=== PATIENT | male | born 1950 | race Caucasian/White ===

== ENCOUNTER 2024-07-11 15:53 | Emergency (ER) | payer MEDICARE, OTHER, SELFPAY ==
[2024-07-11 16:01] VITALS: BP 177/112
[2024-07-11 16:02] VITALS: BP 177/112
[2024-07-11 16:02] LABS: Glucose - Point of Care 52 mg/dl (70-99)
[2024-07-11 16:20] VITALS: BP 166/69
[2024-07-11 16:23] LABS: % Immature Granulocytes 0.1 % (0-0.5); % Lymphocytes 26.8 % (20.5-51.1); % Monocytes 12.2 % (1.7-9.3); % Neutrophils 54.9 % (42.2-75.2); Absolute Basophils 0.1 10^3/uL (0-0.2); Absolute Eosinophils 0.4 10^3/uL (0-0.7); Absolute Monocytes 0.9 10^3/uL (0.1-0.6); Hematocrit 38.1 % (39.0-52.0); Hemoglobin 13.1 g/dL (13.0-18.0); Mean Corp Hgb Conc. 34.4 g/dL (33.0-37.0); Mean Corpuscular Hgb 30.1 pg (27.0-31.0); Mean Corpuscular Volume 87.6 fL (80.0-94.0); Mean Platelet Volume 10.5 fL (7.4-10.4); Nucleated Red Blood Cells % 0 % (-); Platelet Count 259 10^3/uL (130-400); Red Blood Cell Count 4.35 10^6/uL (4.70-6.10); White Blood Cell Count 7.3 10^3/uL (4.8-10.8)
[2024-07-11 16:32] LABS: ALT (SGPT) 32 U/L (0-50); AST (SGOT) 26 U/L (17-59); Albumin 4.3 g/dl (3.5-5.0); Alkaline Phosphatase 75 U/L (38-126); Blood Urea Nitrogen 27 mg/dl (9-20); Calcium 8.9 mg/dl (8.4-10.2); Carbon Dioxide 26 mmol/L (22-30); Chloride 103 mmol/L (98-107); Glucose 58 mg/dl (70-99); Potassium 3.8 mmol/L (3.5-5.1); Sodium 139 mmol/L (135-145); Total Bilirubin 0.6 mg/dl (0.2-1.3); Total Protein 6.9 g/dl (6.3-8.2); eGFR > 60.00
[2024-07-11 16:36] LABS: Glucose - Point of Care 87 mg/dl (70-99)
[2024-07-11 16:40] VITALS: BP 178/94
[2024-07-11 16:44] LABS: Troponin I < 0.012 ng/ml
[2024-07-11 17:00] VITALS: BP 146/100
[2024-07-11 17:20] VITALS: BP 171/93
--- NOTE | 2024-07-11 17:44 | ED.GENMED ---
History of Present Illness
General
Chief Complaint: Fainting Sensation
Source: patient
Exam Limitations: none
Time Seen by Provider: 07/11/24 17:00
History of Present Illness
History of Present Illness:
See MDM
Past History
Past History
ED Past Medical History: HTN, NIDDM and Hypothyroidism
ED Past Surgical History: Other (Thyroidectomy)
Social History
Tobacco: Non-smoker
Alcohol: None
Phy Exam
Physical Exam
Physical Exam:
See MDM
Course
Orders/Labs/Results
Orders:
Orders
07/11/24 15:57
Electrocardiogram (*1) Urgent
Reason for Study: Bradycardia / Tachycardia
EKG- Treatment ONCE
07/11/24 16:12
Complete Blood Count/With Diff Urgent
Comprehensive Metabolic Panel Urgent
Troponin I Urgent
Abnormal Lab Results
07/11/24 07/11/24
16:01 16:12
RBC 4.35 L 10^6/uL
(4.70-6.10)
Hct 38.1 L %
(39.0-52.0)
MPV 10.5 H fL
(7.4-10.4)
Absolute Monos (auto) 0.9 H 10^3/uL
(0.1-0.6)
Monocytes % 12.2 H %
(1.7-9.3)
BUN 27 H mg/dl
(9-20)
Glucose 58 L mg/dl
(70-99)
POC Glucose 52 L* mg/dl
(70-99)
07/11/24 16:12
07/11/24 16:12
Vital Signs
Initial and Last Documented VS:
Initial Vital Signs
Pulse Resp BP
86 18 177/112
07/11/24 16:01 07/11/24 16:01 07/11/24 16:01
Last Documented Vital Signs
Temp Pulse Resp BP Pulse Ox
97.4 F 80 19 171/93 93
07/11/24 16:02 07/11/24 17:20 07/11/24 17:20 07/11/24 17:20 07/11/24 17:20
MDM/Problems Addressed
Differential Diagnosis Includes:
HPI and MDM Narrative:
73-year-old male presenting for near syncopal event. Patient was food shopping and he felt lightheaded and dizzy and he was helped to the floor. On arrival, patient found to be hypoglycemic. Patient was given RCS and immediately all symptoms
resolved. He denies chest pain or shortness of breath. Patient had an episode several months back with a negative workup. He has since followed up with a photographer with an echo and stress test and carotid ultrasounds. Patient states all of
his workup was negative. He is on metformin and glimepiride. He does admit to a normal breakfast today.
EKG is nonischemic. Troponin negative. We discussed that his symptoms could be related to glimepiride. We discussed cessation of his glimepiride until calling his doctor tomorrow morning
Physical exam
General: Well appearing and non-toxic
HEENT: protecting airway
Neck: appears supple
CV: No evidence of cyanosis. Regular rate and rhythm
Resp: No accessory muscle use
Abd: Non-distended
Extremities: No deformities. No leg edema
Neuro: alert
Psych: Normal affect
Skin: Intact
Problems Addressed including Acute and Chronic Conditions affecting care:
1. Hypoglycemia
Acuity: acute
Prognosis: stable
Details: Likely in setting of sulfonylurea. Discussed cessation of his medication till speaking to his doctor. After food, blood sugar stable and all symptoms resolved
Differential Diagnosis (but not limited to): Near syncope, cardiac arrhythmia, hypoglycemia
Testing considered: Second troponin
Drug therapy (if applicable): OTC meds, please see d/c instruction regarding Rx drugs
Amount and/or Complexity of Data Reviewed
Clinical info obtained from: Patient
External data reviewed: N/A
Labs I independently reviewed (but not limited to): Hypoglycemia
Radiology: N/A
Pulse Ox: not hypoxic
EKG independently reviewed: Sinus rhythm, normal axis, no STEMI
[employer]: Sinus rhythm
Critical Care: N/A
Risk of Complication:
Social Determinants of health: Good social support
Discussed with other providers: N/A
Escalation of Care includes Admit/Obs: After being observed in the Emergency Department, pt stable for discharge.
Occasional wrong word or 'sound a like' substitutions may have occurred due to the inherent limitations of voice recognition software. Read the chart carefully and recognize, using context, where substitutions have occurred.
*Critical Care Note
Total Time (30-74mins, 75-104mins- exclusive of procedures): Not Applicable
ED Attending Note
-
Portions of this chart may have been created with voice recognition software.� Occasional wrong word or��sound alike� substitutions may have occurred due to the inherent limitations of voice recognition software.
Discharge Plan
Departure
Patient Disposition: Home (Routine Discharge)
Date of Disposition: 07/11/24
Time of Disposition: 17:53
Patient with high blood pressure during this ER visit?: Yes
Discharge Problem:
Hypoglycemia
Instructions: BLOOD PRESSURE
Activity Restrictions/Additional Instructions:
Please return for any worsening symptoms.
You may return at any time if you have further concerns.
Please follow up with your doctor at the first available appointment, preferably this week. Refrain from taking your glimepiride until speaking to your doctor. He may want to decrease it or discontinue it.
Thank you for choosing [facility].
Interventions
Interventions:
*Risk Screen - Suicide Last Done: 07/11/24 15:59
*General Assessment Last Done: 07/11/24 15:59
*Neglect/Abuse Screening Last Done: 07/11/24 15:59
*ED COVID-19 Vaccine History Last Done: 07/11/24 16:00
ED- Cardiac Assessment Last Done: 07/11/24 16:03
ED- Neurological Assessment Last Done: 07/11/24 16:03
Discharge Date and Time
Print Language: JAPANESE
[2024-07-11 18:21] LABS: Glucose - Point of Care 134 mg/dl (70-99)
== END 2024-07-11 18:43 | disposition home or self-care (01) ==
LOC: EMR 15:53
PROVIDERS: EMERGENCY PHYSICIAN Student in an Organized Health Care Education/Training Program; FAMILY PHYSICIAN Physical Therapist
DX: E11.649 Type 2 diabetes mellitus with hypoglycemia without coma (principal); R55 Syncope and collapse; I10 Essential (primary) hypertension; E03.9 Hypothyroidism, unspecified
CPT/HCPCS: 99283; 80053; 82962; 84484; 85025; 93005

== ENCOUNTER 2024-11-29 14:34 | Emergency (ER) | payer MEDICARE, OTHER, SELFPAY ==
[2024-11-29 14:37] VITALS: BP 171/92
[2024-11-29 15:15] LABS: % Basophils 0.8 % (0-2); % Eosinophils 4.8 % (0-6); % Immature Granulocytes 0.2 % (0-0.5); % Monocytes 12.9 % (1.7-9.3); % Neutrophils 55.3 % (42.2-75.2); Absolute Basophils 0.1 10^3/uL (0-0.2); Absolute Eosinophils 0.3 10^3/uL (0-0.7); Absolute Lymphocytes 1.7 10^3/uL (1.2-3.4); Absolute Monocytes 0.8 10^3/uL (0.1-0.6); Absolute Neutrophils 3.6 10^3/uL (1.4-6.5); Hematocrit 38.7 % (39.0-52.0); Hemoglobin 12.8 g/dL (13.0-18.0); Mean Corp Hgb Conc. 33.1 g/dL (33.0-37.0); Mean Corpuscular Hgb 29.6 pg (27.0-31.0); Mean Corpuscular Volume 89.6 fL (80.0-94.0); Mean Platelet Volume 11.1 fL (7.4-10.4); Nucleated Red Blood Cells % 0 % (-); Platelet Count 255 10^3/uL (130-400); Red Blood Cell Count 4.32 10^6/uL (4.70-6.10); Red Cell Dist. Width 13.2 % (11.5-14.5); White Blood Cell Count 6.4 10^3/uL (4.8-10.8)
[2024-11-29 15:24] LABS: ALT (SGPT) 28 U/L (0-50); AST (SGOT) 22 U/L (17-59); Albumin 4.7 g/dl (3.5-5.0); Alkaline Phosphatase 59 U/L (38-126); Blood Urea Nitrogen 28 mg/dl (9-20); Calcium 9.6 mg/dl (8.4-10.2); Carbon Dioxide 31 mmol/L (22-30); Chloride 104 mmol/L (98-107); Glucose 88 mg/dl (70-99); Potassium 4.9 mmol/L (3.5-5.1); Sodium 142 mmol/L (135-145); Total Bilirubin 0.8 mg/dl (0.2-1.3); Total Protein 7.4 g/dl (6.3-8.2); eGFR > 60.00
[2024-11-29 15:34] LABS: Troponin I < 0.012 ng/ml
[2024-11-29 16:37] VITALS: BP 139/81
[2024-11-29 18:00] VITALS: BP 134/83
[2024-11-29 18:58] LABS: TSH Reflex To Free T4 0.04 uIU/ml (0.47-4.68)
[2024-11-29 19:27] LABS: Free T4 2.27 ng/dl (0.78-2.19)
[2024-11-29 19:38] VITALS: BP 158/88
--- NOTE | 2024-11-29 19:42 | ED.GENMED ---
History of Present Illness
General
Chief Complaint: Numbness
Source: patient
Exam Limitations: none
Time Seen by Provider: 11/29/24 17:31
History of Present Illness
History of Present Illness:
74-year-old male presents with multiple complaints including numbness to the both feet and arms. This has been ongoing for several months. He also notes ongoing gurgling sensation in his abdomen for which he is seeing GI for. The reason he came
today however was for ongoing night sweats and some chest discomfort he has had over the past several days. He is a fqg-nudfnyj-rdmknaahj diabetic. He currently denies chest pain. He was sent in by the family doctor. No other complaints at this
time
Past History
Past History
ED Past Medical History: HTN, NIDDM and Hypothyroidism
ED Past Surgical History: Other (Thyroidectomy)
Social History
Tobacco: Non-smoker
Alcohol: None
Phy Exam
Physical Exam
Physical Exam:
General: Well-appearing male no acute respiratory distress
HEENT normocephalic atraumatic
Heart: Regular rate and rhythm
Lungs: Clear no wheeze
Vascular 2+ radial pulses bilaterally as well as 2+ DP pulses bilaterally
Abdomen is soft nontender nondistended
Course
Orders/Labs/Results
Orders:
Orders
11/29/24 14:42
EKG [Electrocardiogram (*1)] Urgent
Reason for Study: Fatigue / Weakness
11/29/24 14:43
EKG- Treatment ONCE
11/29/24 14:53
Complete Blood Count/With Diff Urgent
Comprehensive Metabolic Panel Urgent
Free T4 Urgent
TSH Reflex To Free T4 Urgent
Comment: ADD ON
Troponin I Urgent
11/29/24 17:49
Add On- LAB Urgent
Tests Added?: tsh reflex to t4
CR Chest - 2 Views Urgent
Comment:
Reason For Exam: chest pain
Abnormal Lab Results
11/29/24
14:53
RBC 4.32 L 10^6/uL
(4.70-6.10)
Hgb 12.8 L g/dL
(13.0-18.0)
Hct 38.7 L %
(39.0-52.0)
MPV 11.1 H fL
(7.4-10.4)
Absolute Monos (auto) 0.8 H 10^3/uL
(0.1-0.6)
Monocytes % 12.9 H %
(1.7-9.3)
Carbon Dioxide 31 H mmol/L
(22-30)
BUN 28 H mg/dl
(9-20)
TSH (Reflex) 0.04 L uIU/ml
(0.47-4.68)
Free T4 2.27 H ng/dl
(0.78-2.19)
11/29/24 14:53
11/29/24 14:53
Vital Signs
Initial and Last Documented VS:
Initial Vital Signs
Temp Pulse Resp BP Pulse Ox
98.0 F 67 18 171/92 98
11/29/24 14:37 11/29/24 14:37 11/29/24 14:37 11/29/24 14:37 11/29/24 14:37
Last Documented Vital Signs
Temp Pulse Resp BP Pulse Ox
98.0 F 55 9 134/83 91
11/29/24 14:37 11/29/24 18:15 11/29/24 18:15 11/29/24 18:00 11/29/24 18:15
MDM/Problems Addressed
Differential Diagnosis Includes:
Patient with multiple vague complaints. More concerning for him recently was night sweats. He does not have a fever he has not been coughing there is no respiratory distress he does have a history of hypothyroid and is on Synthroid. Will check
labs including TSH. Troponin was ordered which was reviewed and is undetectable. Chest x-ray was clear. If anything free T4 is slightly elevated but no indication for any intervention at this time. The numbness in both feet and hands could be
consistent with neuropathy from his diabetes. This is a chronic issue. No indication for admission stable for discharge
*Critical Care Note
Total Time (30-74mins, 75-104mins- exclusive of procedures): Not Applicable
ED Attending Note
-
Portions of this chart may have been created with voice recognition software.� Occasional wrong word or��sound alike� substitutions may have occurred due to the inherent limitations of voice recognition software.
Discharge Plan
Departure
Patient Disposition: Home (Routine Discharge)
Date of Disposition: 11/29/24
Time of Disposition: 19:44
Patient with high blood pressure during this ER visit?: No
Discharge Problem:
Night sweats
Instructions: Peripheral Neuropathy (DC)
Prescriptions:
No Action
losartan 50 mg Tablet
50 mg PO DAILY
metformin 500 mg Tablet
500 mg PO DAILY
levothyroxine 175 mcg Tablet
175 mcg PO DAILY
glimepiride 1 mg Tablet
1 mg PO BID
rosuvastatin 10 mg Tablet
10 mg PO DAILY
hydrochlorothiazide 12.5 mg Tablet
12.5 mg PO DAILY
Metamucil 3.4 gram/5.4 gram Powder
1 tbsp PO BID
Referrals:
Pacheco Torres MD [Family Provider]
Activity Restrictions/Additional Instructions:
Please return here for worsening symptoms otherwise follow-up with your doctor
Interventions
Interventions:
*Risk Screen - Suicide Last Done: 11/29/24 14:37
*General Assessment Last Done: 11/29/24 17:43
*Neglect/Abuse Screening Last Done: 11/29/24 14:37
*ED- Fall Risk Assessment Last Done: 11/29/24 17:43
*ED COVID-19 Vaccine History Last Done: 11/29/24 17:43
ED- Neurological Assessment Last Done: 11/29/24 19:38
Discharge Date and Time
Print Language: ALBANIAN
== END 2024-11-29 19:52 | disposition home or self-care (01) ==
LOC: EMR 14:34
PROVIDERS: EMERGENCY PHYSICIAN Emergency Medicine; FAMILY PHYSICIAN Physical Therapist
DX: R61 Generalized hyperhidrosis (principal); R07.89 Other chest pain; E11.9 Type 2 diabetes mellitus without complications; I10 Essential (primary) hypertension; E03.9 Hypothyroidism, unspecified
CPT/HCPCS: 99283; 71046; 80053; 84439; 84443; 84484; 85025; 93005

== ENCOUNTER 2024-12-21 13:39 | Emergency (ER) | payer MEDICARE, OTHER, SELFPAY ==
[2024-12-21 13:43] VITALS: BP 161/89
[2024-12-21 13:48] LABS: Glucose - Point of Care 106 mg/dl (70-99)
[2024-12-21 14:13] VITALS: BMI 31.7
[2024-12-21] MEDS: OMNIPAQUE 50 ML PO (15:24)
[2024-12-21 15:40] LABS: % Basophils 0.8 % (0-2); % Eosinophils 4.8 % (0-6); % Immature Granulocytes 0.4 % (0-0.5); % Monocytes 13.4 % (1.7-9.3); % Neutrophils 56.6 % (42.2-75.2); Absolute Eosinophils 0.2 10^3/uL (0-0.7); Absolute Lymphocytes 1.2 10^3/uL (1.2-3.4); Absolute Monocytes 0.7 10^3/uL (0.1-0.6); Absolute Neutrophils 2.7 10^3/uL (1.4-6.5); Hematocrit 35.6 % (39.0-52.0); Hemoglobin 12.2 g/dL (13.0-18.0); Mean Corp Hgb Conc. 34.3 g/dL (33.0-37.0); Mean Corpuscular Volume 87.5 fL (80.0-94.0); Mean Platelet Volume 11.2 fL (7.4-10.4); Nucleated Red Blood Cells % 0 % (-); Platelet Count 216 10^3/uL (130-400); Red Blood Cell Count 4.07 10^6/uL (4.70-6.10); Red Cell Dist. Width 12.7 % (11.5-14.5); White Blood Cell Count 4.8 10^3/uL (4.8-10.8)
--- NOTE | 2024-12-21 15:54 | ED.GENMED ---
History of Present Illness
General
Chief Complaint: Abdominal Symptoms
Time Seen by Provider: 12/21/24 14:34
History of Present Illness
History of Present Illness:
74-year-old male with history of hyperlipidemia, diabetes, and hypertension presenting for diarrhea. Patient reports since February of last year he has had issues with his bowel movements. He notes that sometimes will have diarrhea, other times
constipation. More recently in the past 3 days has had a lot of watery diarrhea. Notes some abdominal cramping with the diarrhea, denies any abdominal pain. He has previously seen GI, recommended to use Metamucil versus MiraLAX. He reports that
his last colonoscopy was in 2018. Denies fever, chest pain, difficulty breathing. Does report some lightheadedness upon standing. Denies additional acute medical complaints.
Past History
Past History
ED Past Medical History: HTN, NIDDM and Hypothyroidism
ED Past Surgical History: Other (Thyroidectomy)
Social History
Tobacco: Non-smoker
Alcohol: None
Phy Exam
Physical Exam
Physical Exam:
General: Well-appearing, no clinical signs of dehydration, nontoxic and in no acute distress
HEENT: protecting airway
Neck: appears supple
CV: Normal heart rate, regular rhythm
Resp: No accessory muscle use, no increased work of breathing
Abd: Soft and non-distended, no tenderness to palpation, normal bowel sounds, reducible umbilical hernia
Extremities: No deformities, no swelling
Neuro: alert, no focal neurologic deficit
: deferred
Rectal: deferred
Psych: Normal affect
Skin: Intact
Course
Orders/Labs/Results
Orders:
Orders
12/21/24 13:51
Electrocardiogram (*1) Urgent
Reason for Study: Other
Other Reason for Exam: lightheaded
EKG- Treatment ONCE
12/21/24 15:10
Iohexol [Omnipaque] See Protocol PO NOW STA
12/21/24 15:11
CT Abd/pel W Iv And Oral Contr Urgent
Comment:
Reason For Exam: diarrhea and cramping
12/21/24 15:18
Complete Blood Count/With Diff Urgent
Comprehensive Metabolic Panel Urgent
Lipase Urgent
Abnormal Lab Results
12/21/24 12/21/24
13:47 15:18
RBC 4.07 L 10^6/uL
(4.70-6.10)
Hgb 12.2 L g/dL
(13.0-18.0)
Hct 35.6 L %
(39.0-52.0)
MPV 11.2 H fL
(7.4-10.4)
Absolute Monos (auto) 0.7 H 10^3/uL
(0.1-0.6)
Monocytes % 13.4 H %
(1.7-9.3)
Carbon Dioxide 32 H mmol/L
(22-30)
BUN 22 H mg/dl
(9-20)
POC Glucose 106 H mg/dl
(70-99)
12/21/24 15:18
12/21/24 15:18
Vital Signs
Initial and Last Documented VS:
Initial Vital Signs
Temp Pulse Resp BP Pulse Ox
97.7 F 78 20 161/89 99
12/21/24 13:43 12/21/24 13:43 12/21/24 13:43 12/21/24 13:43 12/21/24 13:43
Last Documented Vital Signs
Temp Pulse Resp BP Pulse Ox
97.7 F 71 18 178/89 96
12/21/24 13:43 12/21/24 18:06 12/21/24 18:06 12/21/24 18:06 12/21/24 18:06
MDM/Problems Addressed
MDM/Problems Addressed:
74-year-old male with history of hypertension hyperlipidemia presenting for diarrhea. Vital signs on arrival are significant for mild hypertension.
On exam patient is resting comfortably, no acute distress or discomfort. Benign cardiac and pulmonary exam. No tenderness to the abdomen. Patient reports that this has been a longstanding issue, essentially since last February. Patient is becoming
very frustrated with the absence of any answers or diagnoses. Patient does report issues with both patient and diarrhea, suspected possible irritable bowel syndrome. Patient is nontoxic. Benign examination of the abdomen without strong suspicion
for serious intra-abdominal process or infection. However given duration of symptoms, we will proceed with CT imaging of the abdomen with IV and oral contrast for full evaluation. Ultimately feel that patient will require repeat evaluation by GI
for possible colonoscopy. Plan for screening laboratory analysis. Patient does note some lightheadedness upon standing, normal blood pressure upon standing without concern for orthostatic hypotension. Will continue to closely monitor.
19:10 -labs unremarkable and CT without any acute pathology. Results of CT and incidental findings went over with patient, provided copy. At this time, unclear source of symptoms, however does not appear to be any present life threat. Feel stable
for discharge, advised outpatient GI follow-up for potential colonoscopy. Strict return precautions communicated and patient verbalized understanding
*Pulse Oximetry
SaO2: 99
Oxygen Mode of Delivery: Room air
*Critical Care Note
Total Time (30-74mins, 75-104mins- exclusive of procedures): Not Applicable
ED Attending Note
-
Portions of this chart may have been created with voice recognition software.� Occasional wrong word or��sound alike� substitutions may have occurred due to the inherent limitations of voice recognition software.
Discharge Plan
Departure
Prescriptions:
No Action
losartan 50 mg Tablet
50 mg PO DAILY
metformin 500 mg Tablet
500 mg PO DAILY
levothyroxine 175 mcg Tablet
175 mcg PO DAILY
glimepiride 1 mg Tablet
1 mg PO BID
rosuvastatin 10 mg Tablet
10 mg PO DAILY
hydrochlorothiazide 12.5 mg Tablet
12.5 mg PO DAILY
Metamucil 3.4 gram/5.4 gram Powder
1 tbsp PO BID
Referrals:
Lorne Pena DO [Family Provider, Family Practice]
Interventions
Interventions:
*Risk Screen - Suicide Last Done: 12/21/24 13:43
*General Assessment Last Done: 12/21/24 14:13
*Neglect/Abuse Screening Last Done: 12/21/24 13:43
*ED- Fall Risk Assessment Last Done: 12/21/24 14:13
*ED COVID-19 Vaccine History Last Done: 12/21/24 14:13
MR-Odqgjd-Abaweulqfm Assessment Last Done: 12/21/24 14:13
Discharge Date and Time
Print Language: ROMANSH
[2024-12-21 16:09] LABS: ALT (SGPT) 18 U/L (0-50); AST (SGOT) 18 U/L (17-59); Albumin 4.1 g/dl (3.5-5.0); Alkaline Phosphatase 57 U/L (38-126); Blood Urea Nitrogen 22 mg/dl (9-20); Calcium 9.6 mg/dl (8.4-10.2); Carbon Dioxide 32 mmol/L (22-30); Chloride 105 mmol/L (98-107); Estimated Creatinine Clearance 79 ml/min; Glucose 95 mg/dl (70-99); Lipase 56 U/L (23-300); Potassium 4.5 mmol/L (3.5-5.1); Sodium 142 mmol/L (135-145); Total Bilirubin 0.8 mg/dl (0.2-1.3); Total Protein 6.7 g/dl (6.3-8.2); eGFR > 60.00
[2024-12-21 18:06] VITALS: BP 178/89
[2024-12-21 19:00] VITALS: BP 146/75
== END 2024-12-21 19:36 | disposition home or self-care (01) ==
LOC: EMR 13:39
PROVIDERS: EMERGENCY PHYSICIAN Student in an Organized Health Care Education/Training Program; FAMILY PHYSICIAN Family Medicine
DX: R19.7 Diarrhea, unspecified (principal); I10 Essential (primary) hypertension; E78.5 Hyperlipidemia, unspecified; E11.9 Type 2 diabetes mellitus without complications
CPT/HCPCS: 99285; 74177; 80053; 82962; 83690; 85025; 93005; Q9967